=== PATIENT | male | born 1985 | race African-American/Black ===

== ENCOUNTER 2016-12-31 15:22 | Observation (INO) ==
[2016-12-31 15:40] LABS: MANUAL DIFF NEEDED? NO
[2016-12-31 15:44] LABS: BASO% 0.3 % (0.0-0.8); EOS# 0.06 X1000 (0.0-0.7); EOS% 0.5 % (0.0-10.0); HEMATOCRIT 44.2 % (42.0-52.0); IMM GRAN# 0.02 X1000 (0.0-0.04); IMM GRAN% 0.2 % (0.0-0.5); LYMPH# 2.62 X1000 (1.2-3.4); LYMPH% 22.6 % (20.5-51.1); MCH 30.5 PG (27-31); MCHC 33.9 g/dL (33-37); MONO# 0.52 X1000 (0.11-0.59); MONO% 4.5 % (1.7-9.3); MPV 9.9 FL (7.4-10.4); NEUT% 71.9 % (42.2-75.2); PLT 236 X1000 (130-400); RBC 4.91 XMIL (4.7-6.1)
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
[2016-12-31 15:55] LABS: INR 0.99 (0.86-1.15); PROTIME 13.9 Seconds (12.1-15.5)
[2016-12-31 16:05] LABS: AGAP 15; ALBUMIN 4.7 g/dL (3.5-5.0); ALKALINE PHOSPHATASE 96 U/L (32-122); BUN 7 mg/dL (8-22); CALCIUM 9.1 mg/dL (8.8-10.2); CHLORIDE 100 mmol/L (98-107); COSMO 279; GOT 53 U/L (10-34); GPT 32 U/L (10-44); POTASSIUM 4.1 mmol/L (3.5-5.1); SODIUM 140 mmol/L (136-145); TCO2 25 mmol/L (25-35); TOTAL PROTEIN 8.2 g/dL (6.3-8.3)
[2016-12-31] MEDS ORDERED: DEMEROL IV ONE (16:09)
[2016-12-31] MEDS ORDERED: NS 1,000 ML IV ONE (16:10)
[2016-12-31] MEDS ORDERED: ZOFRAN IV ONE (16:10)
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
[2016-12-31] MEDS ORDERED: NS 1,000 ML ONE (16:12)
[2016-12-31 16:38] LABS: CK INDEX 0.7 (0.0-2.5); CK-MB 11.51 ng/mL (0.0-5.0)
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
[2016-12-31] MEDS ORDERED: BOOSTRIX VACCINE IM ONE (18:29)
[2016-12-31] MEDS: MORPHINE IV PRN (19:55)
[2017-01-01] MEDS: MORPHINE IV PRN ×3 (01:50→15:17)
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
[2017-01-01 06:46] LABS: MANUAL DIFF NEEDED? NO
[2017-01-01 06:54] LABS: BASO% 0.4 % (0.0-0.8); EOS# 0.19 X1000 (0.0-0.7); EOS% 2.4 % (0.0-10.0); HEMOGLOBIN 13.8 g/dL (14.0-18.0); IMM GRAN# 0.01 X1000 (0.0-0.04); IMM GRAN% 0.1 % (0.0-0.5); LYMPH# 3.36 X1000 (1.2-3.4); LYMPH% 42.1 % (20.5-51.1); MCH 30.1 PG (27-31); MCHC 32.9 g/dL (33-37); MCV 91.7 FL (81-99); MONO# 0.46 X1000 (0.11-0.59); MONO% 5.8 % (1.7-9.3); MPV 10.4 FL (7.4-10.4); NEUT% 49.2 % (42.2-75.2); PLT 215 X1000 (130-400); RBC 4.58 XMIL (4.7-6.1)
[2017-01-01 07:22] LABS: AGAP 11; ALBUMIN 3.6 g/dL (3.5-5.0); ALKALINE PHOSPHATASE 82 U/L (32-122); BUN 7 mg/dL (8-22); CALCIUM 8.4 mg/dL (8.8-10.2); CHLORIDE 102 mmol/L (98-107); COSMO 275; GOT 41 U/L (10-34); GPT 23 U/L (10-44); POTASSIUM 3.5 mmol/L (3.5-5.1); SODIUM 139 mmol/L (136-145); TCO2 26 mmol/L (25-35); TOTAL PROTEIN 6.7 g/dL (6.3-8.3)
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
[2017-01-01 15:33] VITALS: BP 131/79
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
== END 2017-01-01 20:11 | disposition home or self-care (01) ==
LOC: P.MEDSURG 15:22 → P.ED 15:22 → SUATTDRO 19:19 → P.MEDSURG 19:29
PROVIDERS: ADMIT Surgery; ATTEND Surgery